=== PATIENT | male | born 1960 | race Caucasian/White ===

== ENCOUNTER 2020-07-28 21:02 | Emergency (ER) | payer OTHER ==
[~2020-07-28] VITALS: Ht 182.9 cm; Wt 158.8 kg
[2020-07-28 21:12] VITALS: BP 138/76
--- NOTE | 2020-07-28 21:12 | NUR ---
TO BED AMBULATORY
--- NOTE | 2020-07-28 21:27 | NUR ---
59/M BIB [facility] C/O ABSCESS ON HIS BACK AND SOB SINCE MONDAY. PT SAID THE ABSCESS POPPED. UPON INSPECTION, REDNESS, SWELLING, DISCHARGE, AND FOUL ODOR NOTED. DRESSING IN PLACE. PT NOT IN DISTRESS. PT UNSURE WITH HIS TETANUS VACCINE. DENIES [facility]
[2020-07-28 22:52] LABS: BASOPHILS # (AUTO) 0.1 K/uL (0.00-0.22); BASOPHILS % (AUTO) 0.6 % (0.0-2.0); EOSINOPHILS # (AUTO) 0.1 K/uL (0-0.4); EOSINOPHILS % (AUTO) 1.3 % (0.0-4.0); HEMATOCRIT 43.9 % (36-52); HEMOGLOBIN 14.6 g/dL (12.0-18.0); LYMPHOCYTES # (AUTO) 0.5 K/uL (2.0-11.5); LYMPHOCYTES % (AUTO) 4.8 % (20.5-51.1); MEAN CORPUSCULAR HEMOGLOBIN 32 pg (27-31); MEAN CORPUSCULAR HGB CONC 33 g/dL (33-37); MEAN CORPUSCULAR VOLUME 97.1 fL (80-94); MONOCYTES # (AUTO) 0.9 K/uL (0.8-1.0); NEUTROPHILS # (AUTO) 8.1 K/uL (1.8-7.7); NEUTROPHILS % (AUTO) 84.3 % (42.2-75.2); PLATELET COUNT (AUTO) 289 K/uL (140-450); RED BLOOD CELL COUNT(AUTO) 4.52 MIL/uL (4.20-6.10); RED CELL DISTRIBUTION WIDTH 13.9 % (11.6-13.7); WHITE BLOOD COUNT (AUTO) 9.6 K/uL (4.8-10.8)
[2020-07-28] MEDS ORDERED: SULF-979 PO (23:03)
[2020-07-28 23:09] VITALS: BP 138/76
[2020-07-28 23:10] LABS: ANION GAP 13.3 (8-16); CARBON DIOXIDE 25.6 mmol/L (21-32); CREATININE 2.1 mg/dL (0.6-1.3); POTASSIUM 4.9 mmol/L (3.5-5.1); TOTAL BILIRUBIN 1.4 mg/dL (0.0-1.0)
[2020-07-28 23:11] LABS: ALBUMIN 2.2 g/dL (3.4-5.0)
== END 2020-07-28 23:09 | disposition home or self-care (01) ==
LOC: MED 21:02
DX: L03.312 Cellulitis of back [any part except buttock and flank] (principal); L02.212 Cutaneous abscess of back [any part, except buttock and flank]; Z79.899 Other long term (current) drug therapy
CPT/HCPCS: 36415; 80053; 85025; 99283